=== PATIENT | male | born 1935 | race Asian ===

== ENCOUNTER 2019-07-21 00:47 | Emergency (ER) | payer OTHER ==
[~2019-07-21] VITALS: Ht 165.1 cm; Wt 58.1 kg
[2019-07-21 00:54] VITALS: Ht 165.1 cm; Wt 58.1 kg
[2019-07-21 02:17] LABS: BASOPHIL % 0.5 % (0-2); PLATELET COUNT 198 x10^3mcL (130-400); RED CELL DISTRIBUTION WIDTH 14.3 % (11.5-14.5)
[2019-07-21 02:20] LABS: CALCIUM 9.2 mg/dL (8.5-10.1); CARBON DIOXIDE 24.9 mmol/L (21-32); CHLORIDE SERUM 102 mmol/L (98-107); CREATININE SERUM 2.1 mg/dL (0.7-1.3); GLUCOSE SERUM 186 mg/dL (74-106); POTASSIUM SERUM 4.6 mmol/L (3.5-5.1); SODIUM SERUM 139 mmol/L (136-145)
[2019-07-21 02:26] LABS: ALBUMIN 3.4 g/dL (3.4-5.0); ALKALINE PHOSPHATASE 116 U/L (46-116); ALT/SGPT 21 U/L (16-63); AST/SGOT 35 U/L (15-37); BILIRUBIN TOTAL 0.17 mg/dL (0.20-1.00); TOTAL PROTEIN, SERUM 6.2 g/dL (6.4-8.2)
[2019-07-21 03:00] VITALS: BP 158/61
== END 2019-07-21 03:00 | disposition home or self-care (01) ==
LOC: ED 00:47
PROVIDERS: Emergency Medicine
DX: I10 Essential (primary) hypertension (principal); E11.9 Type 2 diabetes mellitus without complications
CPT/HCPCS: Q0092

== ENCOUNTER 2019-08-14 01:07 | Observation (INO) | payer OTHER ==
[~2019-08-14] VITALS: Ht 165.1 cm; Wt 57.6 kg
[2019-08-14 02:23] LABS: BASOPHIL % 0.4 % (0-2); PLATELET COUNT 241 x10^3mcL (130-400)
[2019-08-14 02:30] LABS: CALCIUM 8.8 mg/dL (8.5-10.1); CARBON DIOXIDE 25.5 mmol/L (21-32); CHLORIDE SERUM 104 mmol/L (98-107); CREATININE SERUM 2.2 mg/dL (0.7-1.3); GLUCOSE SERUM 160 mg/dL (74-106); POTASSIUM SERUM 4.2 mmol/L (3.5-5.1); SODIUM SERUM 139 mmol/L (136-145)
[2019-08-14 02:35] LABS: ALBUMIN 3.5 g/dL (3.4-5.0); ALKALINE PHOSPHATASE 106 U/L (46-116); ALT/SGPT 49 U/L (16-63); AST/SGOT 51 U/L (15-37); BILIRUBIN TOTAL 0.23 mg/dL (0.20-1.00); TOTAL PROTEIN, SERUM 6.8 g/dL (6.4-8.2)
[2019-08-14 05:41] VITALS: BP 198/82
[2019-08-14 06:32] LABS: BASOPHIL % 1.1 % (0-2); PLATELET COUNT 204 x10^3mcL (130-400); RED CELL DISTRIBUTION WIDTH 13.8 % (11.5-14.5)
[2019-08-14 06:42] LABS: ALBUMIN 3.4 g/dL (3.4-5.0); ALKALINE PHOSPHATASE 102 U/L (46-116); ALT/SGPT 44 U/L (16-63); AST/SGOT 52 U/L (15-37); BILIRUBIN TOTAL 0.3 mg/dL (0.20-1.00); CALCIUM 8.7 mg/dL (8.5-10.1); CARBON DIOXIDE 26.9 mmol/L (21-32); CHLORIDE SERUM 103 mmol/L (98-107); CREATININE SERUM 2.1 mg/dL (0.7-1.3); GLUCOSE SERUM 160 mg/dL (74-106); MAGNESIUM 1.6 mg/dL (1.8-2.4); POTASSIUM SERUM 4.3 mmol/L (3.5-5.1); SODIUM SERUM 140 mmol/L (136-145); TOTAL PROTEIN, SERUM 6.7 g/dL (6.4-8.2)
[2019-08-14 09:09] VITALS: BP 113/49
[2019-08-14 13:59] VITALS: BP 155/68
[2019-08-14 16:46] LABS: CALCIUM 8.6 mg/dL (8.5-10.1); CARBON DIOXIDE 24.4 mmol/L (21-32); CHLORIDE SERUM 100 mmol/L (98-107); CREATININE SERUM 2.2 mg/dL (0.7-1.3); GLUCOSE SERUM 186 mg/dL (74-106); POTASSIUM SERUM 4.4 mmol/L (3.5-5.1); SODIUM SERUM 138 mmol/L (136-145)
[2019-08-14 16:51] LABS: ALKALINE PHOSPHATASE 91 U/L (46-116); ALT/SGPT 36 U/L (16-63); AST/SGOT 42 U/L (15-37); BILIRUBIN TOTAL 0.2 mg/dL (0.20-1.00)
[2019-08-14 16:54] LABS: ALBUMIN 3.1 g/dL (3.4-5.0); TOTAL PROTEIN, SERUM 6.1 g/dL (6.4-8.2)
[2019-08-14 17:19] VITALS: BP 109/51
[2019-08-14 20:50] VITALS: BP 153/71
[2019-08-14 23:08] LABS: microscopic required? YES; urine erythrocyte NEGATIVE (NEGATIVE)
[2019-08-15 05:32] VITALS: BP 151/69
[2019-08-15 06:32] LABS: BASOPHIL % 0.6 % (0-2); PLATELET COUNT 208 x10^3mcL (130-400); RED CELL DISTRIBUTION WIDTH 13.7 % (11.5-14.5)
[2019-08-15 06:55] LABS: ALKALINE PHOSPHATASE 91 U/L (46-116); ALT/SGPT 33 U/L (16-63); AST/SGOT 38 U/L (15-37); BILIRUBIN TOTAL 0.31 mg/dL (0.20-1.00); CALCIUM 8.5 mg/dL (8.5-10.1); CARBON DIOXIDE 27.2 mmol/L (21-32); CHLORIDE SERUM 104 mmol/L (98-107); CREATININE SERUM 2.1 mg/dL (0.7-1.3); GLUCOSE SERUM 112 mg/dL (74-106); POTASSIUM SERUM 3.9 mmol/L (3.5-5.1); SODIUM SERUM 139 mmol/L (136-145)
[2019-08-15 07:00] LABS: TOTAL PROTEIN, SERUM 5.9 g/dL (6.4-8.2)
[2019-08-15 08:00] VITALS: BP 140/72
[2019-08-15 10:17] VITALS: BP 140/72
[2019-08-15] MEDS ORDERED: CLONIDINE HYDR0.1 M1 PO (10:33)
[2019-08-15] MEDS ORDERED: HYZAAR 100-251 EACH (10:34)
[2019-08-15] MEDS ORDERED: TAMSULOSIN HCL0.4 MG ×2 (10:43→10:44)
[2019-08-15] MEDS ORDERED: FORTAMET500 M1 PO (10:51)
[2019-08-15] MEDS ORDERED: HYZAAR 100-251 EACH PO (11:17)
[2019-08-15] MEDS ORDERED: ADALAT CC30 MG PO (11:17)
[2019-08-15 13:39] VITALS: BP 157/79
== END 2019-08-15 13:38 | disposition home or self-care (01) ==
LOC: ED 01:07 → DU 04:32 → EDBEDREQ 04:32 → DU 04:32
PROVIDERS: Emergency Medicine; Hospitalist; Internal Medicine; ADMIT Internal Medicine Pulmonary Disease
DX: I16.0 Hypertensive urgency (principal); N17.9 Acute kidney failure, unspecified; I12.9 Hypertensive chronic kidney disease with stage 1 through stage 4 chronic kidney disease, or unspecified chronic kidney disease; N18.3 Chronic kidney disease, stage 3 (moderate); E11.22 Type 2 diabetes mellitus with diabetic chronic kidney disease
CPT/HCPCS: G0378; J0360; J1644; J2270; J2405; J3475; J7050; Q0092